=== PATIENT | female | born 1995 | race Caucasian/White ===

== ENCOUNTER → 2018-04-19 16:14 | Outpatient (CLI) | payer OTHER, SELFPAY ==
--- NOTE | 2018-04-19 16:17 | DI.RAD.S_ITS ---
PROCEDURE: XR WRIST LT MIN 3V INDICATIONS: heard pop/left wrist pain and bruising TECHNIQUE: 4 views of the wrist were acquired. COMPARISON: None. FINDINGS: Bones: No fractures or dislocations. No suspicious bony lesions. Scaphoid view: Normal. Soft tissues: No suspicious soft tissue calcifications. IMPRESSION: Normal for age, source of current symptoms is not seen. Dictated by: Manuel Ness M.D. on 04/19/2018 at 16:48 Approved by: Manuel Ness M.D. on 04/19/2018 at 16:48
== END ==
PROVIDERS: Visit Provider Physician Assistant
DX: S60.212A Contusion of left wrist, initial encounter (principal); M25.532 Pain in left wrist
CPT/HCPCS: 73110

== ENCOUNTER → 2018-05-28 12:21 | Outpatient (CLI) | payer OTHER, SELFPAY ==
--- NOTE | 2018-05-28 12:26 | DI.MRI.S_ITS ---
PROCEDURE: MR WRIST LT WO CON INDICATIONS: Decreased range of motion left wrist with bruising ulnar dis TECHNIQUE: Noncontrast coronal proton density fast spin echo and T2 fast spin echo with fat saturation; coronal 3-D gradient echo, axial T1 spin echo and T2 fast spin echo with fat saturation, sagittal T1 spin echo through the wrist. COMPARISON: [facility], CR, XR WRIST LT MIN 3V, 04/19/2018, 16:19. FINDINGS: Image quality: Diagnostic. Bones and joints: There is no acute fracture, dislocation, or suspicious osseous lesion identified involving the osseous structures of the left wrist. Bony alignment appears to be within normal limits throughout the wrist with the exception of minimal dorsal subluxation of the distal ulna with respect to the distal radius. Ulna minus variance is noted by approximately 3 mm. There is no widening of the scapholunate or lunotriquetral joints. There may be early degenerative changes of the 1st carpometacarpal joint. Otherwise, no significant degenerative changes of the wrist are evident. Minimal focal marrow edema is identified along the ulnar articular surface of the proximal lunate. There may be a similar appearance involving the triquetrum. No significant joint effusions are evident. Carpal ligaments: The extrinsic and intrinsic ligaments of the wrist are not well evaluated without intra-articular contrast. There may be a small perforation involving the lunotriquetral ligament. No displacement is evident. The scapholunate ligament appears to be grossly intact. The volar and dorsal extrinsic ligaments appear to be grossly intact. Triangular fibrocartilage complex: The triangular fibrocartilage appears intact. The adjacent meniscal homolog appears normal in the absence of intra-articular contrast. The extensor carpi ulnaris tendon is intact, but demonstrates mild thickening and slight increased signal. Tendons and soft tissues: The carpal tunnel structures appear normal, including the median nerve. The ulnar nerve appears normal within Guyon's canal. There is slight increased signal identified involving the extensor tendons of the 1st extensor compartment. No significant fluid is contained within its corresponding tendon sheath. Mild increased signal is noted involving the extensor carpi ulnaris tendon. Otherwise, the remainder of the extensor tendons of the wrist are within normal limits. IMPRESSION: 1. Probable perforating tear of the lunotriquetral ligament. The need for better characterization utilizing MR arthrography may be determined clinically. 2. Degenerative changes of the lunate and triquetrum could potentially be associated with the ulnar minus variance. 3. Mild extensor carpi ulnaris tendinopathy. 4. Possible mild de Quervain's tenosynovitis. 5. Partial early degenerative changes involving the 1st carpometacarpal joint. Dictated by: Omer Christian M.D. on 05/28/2018 at 16:14 Approved by: Omer Christian M.D. on 05/28/2018 at 16:25
== END ==
PROVIDERS: Visit Provider Physician Assistant
DX: M25.532 Pain in left wrist (principal); M18.12 Unilateral primary osteoarthritis of first carpometacarpal joint, left hand
CPT/HCPCS: 73221